=== PATIENT | female | born 1970 | race American Indian/Alaskan Native ===

== ENCOUNTER 2016-12-15 10:01 | Emergency (ER) | payer MEDICAID ==
[2016-12-15 10:08] VITALS: BMI 52.3
[2016-12-15 10:11] VITALS: PULSE 87; RESP 20; TEMP 98.1; O2SAT 100
[2016-12-15 10:12] VITALS: BP 136/82
[2016-12-15] MEDS ORDERED: Naproxen 550 mg Tab PO STA (10:16)
[2016-12-15] MEDS ORDERED: Naproxen 550 mg Tab PO ONE (10:20)
--- NOTE | 2016-12-15 10:21 | C.PDOC ---
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 Patient denies LOC, chest pain, SOB, nausea, vomiting, abdominal pain, neck pain, weakness or numbness. - HPI Time Seen by Provider: 12/15/16 10:12 Chief Complaint (Nursing): Lower Extremity Problem/Injury History Per: Patient History/Exam Limitations: no limitations Onset/Duration Of Symptoms: Sudden Onset ([employer]) Past Medical History Reviewed: Historical Data, Nursing Documentation, Vital Signs Vital Signs: Last Vital Signs Temp 98.1 F 12/15/16 10:07 Pulse 87 12/15/16 10:07 Resp 20 12/15/16 10:07 BP 136/82 12/15/16 10:12 Pulse Ox 100 12/15/16 11:00 - Medical History PMH: Asthma, HTN - [facility] Procedures NEBULIZER THERAPY (08/06/06) Family History: States: No Known Family Hx - Social History Hx Alcohol Use: No Hx Substance Use: No - Immunization History Hx Tetanus Toxoid Vaccination: No Hx Influenza Vaccination: No Hx Pneumococcal Vaccination: No Review Of Systems Except As Marked, All Systems Reviewed And Found Negative. Cardiovascular: Negative for: Chest Pain Respiratory: Negative for: Shortness of Breath Gastrointestinal: Negative for: Nausea, Vomiting, Abdominal Pain Musculoskeletal: Positive for: Back Pain, Other ((+) Right wrist pain. Left knee pain. ). Negative for: Neck Pain Neurological: Negative for: Weakness, Numbness Physical Exam - Physical Exam Appears: Well, Non-toxic, No Acute Distress Skin: Normal Color, Warm, Dry Head: Atraumatic, Normacephalic Oral Mucosa: Moist Neck: Normal, Normal ROM, Supple Chest: Symmetrical, No Tenderness Cardiovascular: Rhythm Regular, No Murmur Back: Normal Inspection, No CVA Tenderness, No Paraspinal Tenderness Extremity: Normal ROM, No Calf Tenderness, No Deformity, Other ((+) Mild right wrist tenderness, no swelling. Mild left knee tenderness, no swelling. ) Neurological/Psych: Oriented x3, Normal Speech, Normal Motor ED Course And Treatment O2 Sat by Pulse Oximetry: 100 - Other Rad X-Ray - Right Wrist X-Ray: Interpreted by Me, Viewed By Me Interpretation: Negative. No fractures noted. X-Ray - Left Knee X-Ray: Interpreted by Me, Viewed By Me Interpretation: Negative. No dislocations noted. Medical Decision Making Medical Decision Making: PLAN: * X-Ray - Left Knee, Right Wrist * Naproxen PO * Flexeril PO 1100: pt reassesed. ambulatory in nad. imaging neg as read by me. no midline ttp /stepoffs. pt placed in knee immoblizer. stable for outpt fu. pt declines crutches. Disposition - Disposition Referrals: [facility] [Outside] [facility] [Outside] Palomo Foster III, MD [Staff Provider] - Disposition: HOME/ ROUTINE Disposition Time: 10:54 Condition: STABLE Additional Instructions: please see specialist and clinic return to er with worsening symptoms or concerns. Prescriptions: Cyclobenzaprine [Cyclobenzaprine HCl] 10 mg PO TID PRN #21 tab PRN Reason: Muscle Spasm Naproxen [Naprosyn] 500 mg PO BID PRN #14 tab PRN Reason: Pain, Mild (1-3) Instructions: Knee Sprain (ED), Back Pain (ED), Wrist Sprain (ED), Knee Immobilizer (ED) Forms: Work Excuse - Clinical Impression Clinical Impression: Fall, Wrist sprain, Knee sprain, Low back strain - Scribe Statement The provider has reviewed the documentation as recorded by the Bellaibcarlos Cardona Provider Attestation: All medical record entries made by the Bellaibcarlos were at my direction and personally dictated by me. I have reviewed the chart and agree that the record accurately reflects my personal performance of the history, physical exam, medical decision making, and the department course for this patient. I have also personally directed, reviewed, and agree with the discharge instructions and disposition.
--- NOTE | 2016-12-15 12:51 | RAD ---
PROCEDURE: Right Wrist Radiographs. HISTORY: trauma COMPARISON: None. FINDINGS: BONES: Normal. No fracture. JOINTS: Normal. No dislocation. SOFT TISSUES: Normal. OTHER FINDINGS: None. IMPRESSION: No acute findings related to/accounting for the clinical presentation.
--- NOTE | 2016-12-15 14:00 | RAD ---
PROCEDURE: Left Knee Radiographs. HISTORY: Pain. COMPARISON: None. FINDINGS: BONES: Normal. No fracture. JOINTS: Moderate osteoarthritic changes. JOINT EFFUSION: None. OTHER FINDINGS: None. IMPRESSION: Moderate osteoarthritic changes.
== END 2016-12-15 11:13 | disposition home or self-care (01) ==
LOC: C.ER 10:01
DX: S83.92XA Sprain of unspecified site of left knee, initial encounter (principal); S63.501A Unspecified sprain of right wrist, initial encounter; W17.89XA Other fall from one level to another, initial encounter; Y92.811 Bus as the place of occurrence of the external cause